=== PATIENT | female | born 1940 | race Caucasian/White ===

== ENCOUNTER 2025-01-27 16:11 | Emergency (ER) | payer MEDICARE, OTHER ==
[~2025-01-27] VITALS: Ht 157.5 cm; Wt 91.5 kg
[2025-01-27] MEDS ORDERED: DONEPEZIL HCL10 MG PO (17:02)
[2025-01-27] MEDS ORDERED: BACLOFEN10 MG PO (17:02)
[2025-01-27] MEDS ORDERED: TORSEMIDE20 MG PO (17:02)
[2025-01-27] MEDS ORDERED: LOSARTAN POTAS100 MG PO (17:02)
[2025-01-27] MEDS ORDERED: DULOXETINE HCL60 MG PO (17:02)
[2025-01-27] MEDS ORDERED: BUPRENORPHINE HC8 MG SL (17:03)
[2025-01-27] MEDS ORDERED: AMLODIPINE BESYL5 MG PO (17:03)
[2025-01-27] MEDS ORDERED: SPIRONOLACTONE25 MG PO (17:03)
[2025-01-27] MEDS ORDERED: ACYCLOVIR400 MG PO (17:03)
[2025-01-27] MEDS ORDERED: ATORVASTATIN CA20 MG PO (17:03)
[2025-01-27] MEDS ORDERED: PREGABALIN100 MG PO (17:04)
[2025-01-27 17:24] LABS: BASOPHILS 1.2 % (0.1-1.2); EOSINOPHILS 9.9 % (0.7-5.8); LYMPHOCYTES 18.4 % (19.3-51.7); MCH 30.2 PG (25.6-32.2); MCHC 32.0 g/dL (32.2-35.5); MCV 94.4 fL (79.4-94.8); MONOCYTES 8.3 % (4.7-12.5); NEUTROPHILS 62.0 % (34.0-71.1); RBC 3.94 M/uL (3.93-5.22)
[2025-01-27 17:39] LABS: ALT (SGPT) 20.0 U/L (14-59); AST (SGOT) 8.0 U/L (15-37); GLOMERULAR FILTRATION RATE,EST 58.0 mL/min (>60); PROTEIN, TOTAL 6.5 g/dL (6.4-8.2); UREA NITROGEN 26.0 mg/dL (7-18)
[2025-01-27 17:51] LABS: BLOOD/HGB, URINE NEGATIVE (Negative); KETONE, URINE NEGATIVE (Negative); LEUK ESTERASE, URINE TRACE (negative); NITRITE, URINE NEGATIVE (negative)
[2025-01-27 17:57] LABS: BACTERIA, URINE NONE SEEN /hpf (negative); CASTS, URINE NONE SEEN \\lpf; CRYSTALS, URINE NONE SEEN (0-1+); REFLEX CULTURE, URINE Yes (No)
[2025-01-27] MEDS ORDERED: CEPHALEXIN500 M1 PO (20:43)
[2025-01-27 21:15] VITALS: BP 136/78
== END 2025-01-27 21:16 | disposition home or self-care (01) ==
LOC: ED 16:11
PROVIDERS: Emergency Medicine
DX: E87.70 Fluid overload, unspecified (principal); N39.0 Urinary tract infection, site not specified; Z96.659 Presence of unspecified artificial knee joint; Z91.048 Other nonmedicinal substance allergy status; Z79.899 Other long term (current) drug therapy
CPT/HCPCS: 36415; 74176; 80053; 81001; 83690; 85025; 87088; 99284-25